=== PATIENT | male | born 1960 | race Two or more races ===

== ENCOUNTER 2024-05-29 16:40 | Emergency (ER) | payer BC ==
[~2024-05-29] VITALS: Ht 182.9 cm; Wt 77.0 kg
[2024-05-29 16:49] VITALS: BP 162/79; RESP 17; O2SAT 97
[2024-05-29] MEDS ORDERED: ASPirin 81 mg TAB PO ONE (17:15)
[2024-05-29 17:16] LABS: Basophils # (auto) 0 10 ^3/uL (0-0.2); Basophils % (auto) 0.5 % (0.0-2.0); Eosinophils # (auto) 0.2 10 ^3/uL (0-0.8); Eosinophils % (auto) 2.3 % (0.0-7.0); Hematocrit 44.1 % (41.0-53.0); Hemoglobin 16.1 g/dL (13.5-17.5); Lymphocytes # (auto) 1.9 10 ^3/uL (0.4-5.4); Lymphocytes % (auto) 20.4 % (10.0-50.0); Mean Corpuscular Hemoglobin 30.8 pg (28.0-32.0); Mean Corpuscular Volume 84.4 fL (80.0-100.0); Monocytes # (auto) 0.7 10 ^3/uL (0-1.3); Monocytes % (auto) 7.8 % (0.0-12.0); Neutrophils # (auto) 6.5 10 ^3/uL (1.6-8.6); Nucleated Red Blood Cells % 0.2 %; Platelet Count (auto) 244 10^3/uL (140-450); Red Blood Cells 5.22 10^6/uL (4.5-5.90); Red Cell Distribution Width 14.1 % (11.8-14.3); White Blood Cell 9.5 10^3/uL (4.4-10.8)
[2024-05-29 17:19] LABS: Mean Corpuscular Hgb Conc. 36.5 g/dL (32.0-36.0)
[2024-05-29 17:40] LABS: Alanine Aminotransferase 27 U/L (7-40); Albumin 4.5 g/dL (3.2-4.8); Alkaline Phosphatase 62 U/L (46-116); Anion Gap 6 (5-15); Aspartate Aminotransferase 12 U/L (13-40); Bilirubin, Total 0.9 mg/dL (0.2-1.0); Blood Urea Nitrogen 17 mg/dL (9-23); Carbon Dioxide 26 mmol/L (20-30); Chloride 106 mmol/L (98-107); Glucose 96 mg/dL (74-106); Potassium 4.5 mmol/L (3.5-5.1); Sodium 138 mmol/L (136-145); Total Protein 7.2 g/dL (5.7-8.2)
[2024-05-29 19:14] LABS: Urine Bacteria None Seen /hpf (None Seen)
[2024-05-29 19:36] LABS: Urine Blood Negative /uL (Negative); Urine Clarity Clear (Clear); Urine Color Light-Yellow (Yellow); Urine Mucus FEW (None Seen); Urine Protein, UAD Negative (Negative); Urine Specific Gravity 1.023 (1.001-1.035); Urine Urobilinogen Normal (Negative); Urine WBC <1 /hpf (0 - 3)
[2024-05-29 19:41] LABS: Amphetamine Screen, Urine Neg (NEGATIVE); Barbiturate Scree,Urine Neg (NEGATIVE); Benzodiazephine Screen, Urine Neg (NEGATIVE); Cannabinoid Screen, Urine Neg (NEGATIVE); Cocaine Screen, Urine Neg (NEGATIVE); Opiate Scree,Urine Neg (NEGATIVE); Phencyclidine Screen, Urine Neg (NEGATIVE)
[2024-05-29 19:43] VITALS: PULSE 65
== END 2024-05-29 22:20 | disposition left against medical advice (07) ==
LOC: ER 16:40
DX: I51.3 Intracardiac thrombosis, not elsewhere classified (principal); Z79.899 Other long term (current) drug therapy
CPT/HCPCS: 36415; 71045; 80053; 80307; 81001; 83880; 84484; 85025; 85379; 93005; 99291